=== PATIENT | male | born 1985 | race Caucasian/White ===

== ENCOUNTER 2020-06-25 10:37 | Emergency (ER) | payer MEDICAID ==
[~2020-06-25] VITALS: Ht 182.9 cm; Wt 91.0 kg
[2020-06-25] MEDS ORDERED: SODIUM CHLORIDE 0.9% 1,000 ML IV ONE (11:45)
[2020-06-25] MEDS ORDERED: CHLORDIAZEPOXIDE 25MG CAPSULE PO ONE (11:45)
[2020-06-25] MEDS ORDERED: CHLO25CA10 MT (13:37)
[2020-06-25 14:45] VITALS: BP 124/50
== END 2020-06-25 14:46 | disposition home or self-care (01) ==
LOC: ER 10:37
DX: F10.10 Alcohol abuse, uncomplicated (principal); I49.9 Cardiac arrhythmia, unspecified; Y90.9 Presence of alcohol in blood, level not specified
CPT/HCPCS: 93005; 96360; 99283; J7030; Z7610